=== PATIENT | male | born 1990 | race Caucasian/White ===

== ENCOUNTER → 2022-08-05 11:13 | Outpatient (CLI) | payer OTHER, SELFPAY ==
[2022-08-05 11:46] LABS: Basophils % 0.3 % (0.1-2.0); Eosinophils # 0.3 K/mm3 (0.0-0.4); Eosinophils % 3.6 % (0.1-12.0); Hematocrit 44.9 % (42.0-52.0); Hemoglobin 14.4 g/dL (14.1-18.0); Lymphocytes # 2.6 K/mm3 (0.7-4.5); Mean Corpuscular HGB Conc 32.1 g/dL (31.8-35.4); Mean Corpuscular Hemoglobin 28.5 pg (27.0-31.2); Mean Corpuscular Volume 88.8 fl (80-94); Mean Platelet Volume 7.6 fl (7.4-10.4); Monocytes # 0.4 K/mm3 (0.1-1.0); Monocytes % 4.9 % (1.7-9.3); Neutrophils # 3.9 K/mm3 (1.8-7.8); Neutrophils % 55.3 % (37.0-80.0); Platelet Count 324 K/mm3 (142-424); Red Blood Count 5.06 M/mm3 (4.60-6.20); Red Cell Distribution Width 13.9 % (11.5-17.5); White Blood Count 7.1 K/mm3 (4.8-10.8)
[2022-08-05 12:28] LABS: 25-OH Vitamin D, Total 28.5 ng/mL (30-100)
[2022-08-05 15:47] LABS: Alanine Aminotransferase 19 U/L (12-78); Albumin Level 4.2 g/dl (3.5-5.0); Alkaline Phosphatase 57 U/L (38-126); Anion Gap 14.5 mEq/L (5-15); Aspartate Amino Transferase 27 U/L (17-59); Bilirubin,Total 0.3 mg/dl (0.2-1.3); Blood Urea Nitrogen 7 mg/dl (9-20); Calcium 8.5 mg/dl (8.4-10.2); Carbon Dioxide 25 mmol/L (22.0-30.0); Chloride 107 mmol/L (98-107); Chol/HDL Ratio 1.8 (1-3.5); Cholesterol 88 mg/dl (140-200); Estimated Glomerular Filt Rate 133 ml/min (>60); GFR (African American) 161 ML/MIN (>60); Globulin 2.1 g/dL (1.3-3.2); Glucose 84 mg/dl (74-100); HDL Cholesterol 49 mg/dl (40-60); Potassium 4.5 mmoL/L (3.5-5.1); Sodium 142 mmol/L (136-145); Total Protein,Serum 6.3 g/dl (6.3-8.2); Triglycerides 44 mg/dl (30-150); VLDL Cholesterol 9 mg/dL (0-40)
[2022-08-05 16:10] LABS: Direct LDL Cholesterol < 30.00 mg/dL (100-129)
[2022-08-05 16:38] LABS: Vitamin B12 < 159 pg/mL (239-931)
[2022-08-09 21:57] LABS: Folate 3.63 ng/mL
== END ==
PROVIDERS: PCP Nurse Practitioner Family; Visit Provider Nurse Practitioner Family
DX: Z00.00 Encounter for general adult medical examination without abnormal findings (principal); G47.10 Hypersomnia, unspecified
CPT/HCPCS: 36415; 80053; 80061; 82306; 82607; 82746; 84443; 85025

== ENCOUNTER 2023-09-29 14:56 | Outpatient (CLI) | payer BC, SELFPAY ==
[2023-09-29 15:45] LABS: Basophils % 0.4 % (0.1-2.0); Eosinophils # 0.2 K/mm3 (0.0-0.4); Eosinophils % 2.2 % (0.1-12.0); Hemoglobin 13.5 g/dL (14.1-18.0); Mean Corpuscular HGB Conc 36.5 g/dL (31.8-35.4); Mean Corpuscular Hemoglobin 34.1 pg (27.0-31.2); Mean Corpuscular Volume 93.4 fl (80-94); Monocytes # 0.4 K/mm3 (0.1-1.0); Monocytes % 4.2 % (1.7-9.3); Neutrophils # 4.8 K/mm3 (1.8-7.8); Neutrophils % 57.2 % (37.0-80.0); Platelet Count 300 K/mm3 (142-424); Red Blood Count 3.96 M/mm3 (4.60-6.20); Red Cell Distribution Width 14.2 % (11.5-17.5); White Blood Count 8.3 K/mm3 (4.8-10.8)
[2023-09-29 15:56] LABS: Albumin Level 4.4 g/dl (3.5-5.0); Chloride 106 mmol/L (98-107); Sodium 138 mmol/L (136-145)
[2023-09-29 15:59] LABS: Alanine Aminotransferase 16 U/L (12-78); Alkaline Phosphatase 59 U/L (38-126); Aspartate Amino Transferase 26 U/L (17-59); Bilirubin,Total 0.7 mg/dl (0.2-1.3); Blood Urea Nitrogen 6 mg/dl (9-20); Calcium 8.8 mg/dl (8.4-10.2); Carbon Dioxide 28 mmol/L (22.0-30.0); Estimated Glomerular Filt Rate 114 ml/min (>60); GFR (African American) 137 ML/MIN (>60); Globulin 2.2 g/dL (1.3-3.2); Glucose 88 mg/dl (74-100); Total Protein,Serum 6.6 g/dl (6.3-8.2)
[2023-09-29 17:11] LABS: Vitamin B12 687 pg/mL (239-931)
[2023-09-29 17:22] LABS: Thyroid Stimulating Hormone 0.47 uIU/mL (0.465-4.68)
[2023-09-30 15:27] LABS: Iron 112 ug/dL (49-181)
[2023-09-30 15:36] LABS: Total Iron Binding Capacity 368 ug/dL (261-462)
== END 2023-09-29 23:59 | disposition home or self-care (01) ==
LOC: LAB 15:01
PROVIDERS: PCP Nurse Practitioner Family; Visit Provider Nurse Practitioner Family
DX: F31.9 Bipolar disorder, unspecified (principal); E53.8 Deficiency of other specified B group vitamins
CPT/HCPCS: 36415; 80050; 80053; 82607; 82728; 83540; 83550; 84443; 85025

== ENCOUNTER 2023-12-19 14:37 | Observation (INO) | payer MEDICAID, SELFPAY ==
[2023-12-19] VITALS (7 sets, daily range): BP systolic 112–151; BP diastolic 67–94; PULSE 46–61; RESP 17–20; TEMP 36.7–36.9; O2SAT 99–100; BMI 26.6
--- NOTE | 2023-12-19 14:50 | CT_ITS ---
PROCEDURE INFORMATION: Exam: CTA Head With Contrast, Arteriography Exam date and time: 12/19/2023 3:42 PM Age: 33 years old Clinical indication: Injury or trauma; Additional info: Trauma, critical injury suspected TECHNIQUE: Imaging protocol: Computed tomographic angiography of the head with contrast. Exam focused on the arteries. 3D rendering (Not supervised by radiologist): MIP and/or 3D reconstructed images were created by the technologist. Radiation optimization: All CT scans at this facility use at least one of these dose optimization techniques: automated exposure control; mA and/or kV adjustment per patient size (includes targeted exams where dose is matched to clinical indication); or iterative reconstruction. Contrast material: ISOVUE 370; Contrast volume: 80 ml; Contrast route: INTRAVENOUS (IV); COMPARISON: 1. CT HEAD/BRAIN WO CON 12/19/2023 3:[address] CERVICAL SPINE WO CON 12/19/2023 3:34 PM FINDINGS: ANTERIOR CIRCULATION: Right internal carotid artery: The right ICA demonstrates trace atherosclerosis. Right middle cerebral artery: No occlusion or significant stenosis. No aneurysm. Right anterior cerebral artery: No occlusion or significant stenosis. No aneurysm. Left internal carotid artery: Intracranial segment is patent with no significant stenosis. No aneurysm. Left middle cerebral artery: No occlusion or significant stenosis. No aneurysm. Left anterior cerebral artery: No occlusion or significant stenosis. No aneurysm. POSTERIOR CIRCULATION: Right vertebral artery: The right vertebral artery is developmentally hypoplastic, patent. Left vertebral artery: The left vertebral artery is dominant, patent. Basilar artery: No occlusion or significant stenosis. No aneurysm. Right posterior cerebral artery: No occlusion or significant stenosis. No aneurysm. Left posterior cerebral artery: No occlusion or significant stenosis. No aneurysm. Brain: No definite mass, mass effect, or midline shift. Cerebral ventricles: No ventriculomegaly. Bones/joints: Unremarkable. No acute fracture. Soft tissues: Unremarkable. Other findings: A left pneumothorax is again demonstrated. IMPRESSION: 1. No proximal intracranial arterial occlusion. 2. Trace intracranial right ICA calcified atherosclerosis, atypical for age.
--- NOTE | 2023-12-19 14:50 | CT_ITS ---
PROCEDURE INFORMATION: Exam: CT Lumbar Spine Without Contrast Exam date and time: 12/19/2023 3:39 PM Age: 33 years old Clinical indication: Injury or trauma; Additional info: Trauma, critical injury suspected TECHNIQUE: Imaging protocol: Computed tomography of the lumbar spine without contrast. Radiation optimization: All CT scans at this facility use at least one of these dose optimization techniques: automated exposure control; mA and/or kV adjustment per patient size (includes targeted exams where dose is matched to clinical indication); or iterative reconstruction. COMPARISON: CT THORACIC SPINE WO CON 12/19/2023 3:36 PM FINDINGS: Bones/joints: There are 5 [id number] vertebral bodies in the lumbar spine. Variant transitional lumbosacral anatomy. No evidence of acute fracture or malalignment. Soft tissues: Unremarkable. IMPRESSION: 1. No evidence of acute osseous abnormality in the lumbar spine. 2. Variant transitional lumbosacral anatomy. 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
--- NOTE | 2023-12-19 14:50 | CT_ITS ---
PROCEDURE INFORMATION: Exam: CT Head Without Contrast Exam date and time: 12/19/2023 3:32 PM Age: 33 years old Clinical indication: Injury or trauma; Additional info: Trauma, critical injury suspected TECHNIQUE: Imaging protocol: Computed tomography of the head without contrast. Radiation optimization: All CT scans at this facility use at least one of these dose optimization techniques: automated exposure control; mA and/or kV adjustment per patient size (includes targeted exams where dose is matched to clinical indication); or iterative reconstruction. COMPARISON: No relevant prior studies available. FINDINGS: Brain: No hemorrhage. Unremarkable white matter for the patient's age. No mass effect. No evolving territorial infarct. Hypodensity in the left lentiform nucleus, likely a perivascular space. Cerebral ventricles: No ventriculomegaly. Pituitary gland and sella: There is an empty sella turcica. Paranasal sinuses: Trace sphenoid sinus mucosal thickening. No sinus fluid levels. Mastoid air cells: Visualized mastoid air cells are well aerated. Bones: No acute calvarial fracture seen. Soft tissues: Unremarkable. IMPRESSION: No acute intracranial abnormality seen.
--- NOTE | 2023-12-19 14:50 | XR_ITS ---
PROCEDURE INFORMATION: Exam: XR Pelvis Exam date and time: 12/19/2023 2:42 PM Age: 33 years old Clinical indication: Injury or trauma TECHNIQUE: Imaging protocol: Radiologic exam of the pelvis. Views: 1 or 2 view. COMPARISON: CR XR PELVIS 1-2V 12/19/2023 2:42 PM FINDINGS: Bones/joints: No evidence of acute fracture or malalignment. Pubic symphysis and bilateral sacroiliac joints are congruent. Soft tissues: Unremarkable. IMPRESSION: No evidence of acute osseous abnormality in the pelvis.
--- NOTE | 2023-12-19 14:50 | CT_ITS ---
PROCEDURE INFORMATION: Exam: CTA Neck With Contrast Exam date and time: 12/19/2023 3:42 PM Age: 33 years old Clinical indication: Injury or trauma; Additional info: Trauma, critical injury suspected TECHNIQUE: Imaging protocol: Computed tomographic angiography of the neck with contrast. Exam focused on the cervical segments of the vasculature. 3D rendering (Not supervised by radiologist): MIP and/or 3D reconstructed images were created by the technologist. Radiation optimization: All CT scans at this facility use at least one of these dose optimization techniques: automated exposure control; mA and/or kV adjustment per patient size (includes targeted exams where dose is matched to clinical indication); or iterative reconstruction. Contrast material: ISOVUE 370; Contrast volume: 80 ml; Contrast route: INTRAVENOUS (IV); COMPARISON: CT CERVICAL SPINE WO CON 12/19/2023 3:34 PM FINDINGS: Right common carotid artery: No stenosis. No dissection or occlusion. Right internal carotid artery: No stenosis of the extracranial segment. No dissection or occlusion. Right external carotid artery: No occlusion or stenosis of the origin. Left common carotid artery: No stenosis. No dissection or occlusion. Left internal carotid artery: No stenosis of the extracranial segment. No dissection or occlusion. Left external carotid artery: No occlusion or stenosis of the origin. Right vertebral artery: No stenosis. No dissection or occlusion. Left vertebral artery: No stenosis. No dissection or occlusion. Soft tissues: Normal. No significant soft tissue swelling. Bones/joints: No acute fracture. Pleural spaces: A left pneumothorax is again demonstrated. IMPRESSION: No evidence of arterial injury in the neck. REFERENCES: NASCET CRITERIA. The degree of stenosis in the cervical segment of the internal carotid artery is based on NASCET criteria. Normal is no stenosis. Mild is less than 50% stenosis. Moderate is 50-69% stenosis. Severe is 70% to 99% stenosis. Total occlusion is no detectable patent lumen.
--- NOTE | 2023-12-19 14:50 | CT_ITS ---
PROCEDURE INFORMATION: Exam: CTA Chest With Contrast CTA Abdomen and Pelvis With Contrast Exam date and time: 12/19/2023 3:47 PM Age: 33 years old Clinical indication: Injury or trauma; Additional info: Trauma, critical injury suspected TECHNIQUE: Imaging protocol: Computed tomographic angiography of the chest with contrast. Exam focused on the arteries. Computed tomographic angiography of the abdomen and pelvis with contrast. Exam focused on the arteries. 3D rendering (Not supervised by radiologist): MIP and/or 3D reconstructed images were created by the technologist. Radiation optimization: All CT scans at this facility use at least one of these dose optimization techniques: automated exposure control; mA and/or kV adjustment per patient size (includes targeted exams where dose is matched to clinical indication); or iterative reconstruction. Contrast material: ISOVUE 370; Contrast volume: 80 ml; Contrast route: INTRAVENOUS (IV); COMPARISON: CR XR PELVIS 1-2V 12/19/2023 2:42 PM FINDINGS: Limitations: Photon starvation artifact related to patient's arm positioning severely degrades images and limits sensitivity of exam. VASCULATURE: Pulmonary arteries: No evidence of pulmonary emboli. Aorta: No aortic dissection or intramural hematoma. Celiac trunk and mesenteric arteries: No occlusion or significant stenosis. Renal arteries: No occlusion or significant stenosis. Right iliac arteries: No occlusion or significant stenosis. Left iliac arteries: No occlusion or significant stenosis. CHEST: Lungs: Minimal dependent subsegmental atelectasis in the left lung. No evidence of pulmonary contusion. No pulmonary edema. Calcified pulmonary granuloma in the right lower lobe consistent with chronic sequelae of prior granulomatous disease. Pleural spaces: Small left pneumothorax (10-15% total volume). No right pneumothorax. No pleural effusion. Heart: No cardiomegaly. No pericardial effusion. ABDOMEN AND PELVIS: Liver: Unremarkable. Gallbladder and biliary ducts: Unremarkable. Pancreas: Unremarkable. Spleen: Unremarkable. Adrenal glands: Unremarkable. Kidneys and ureters: Unremarkable. Stomach and bowel: Unremarkable. Appendix: No evidence of appendicitis. Intraperitoneal space: No free fluid. No pneumoperitoneum. Urinary bladder: Unremarkable. Reproductive: Unremarkable. Lymph nodes: Unremarkable. Bones/joints: No evidence of acute osseous abnormality. Specifically, there is no evidence of acute rib fracture. Soft tissues: Unremarkable. IMPRESSION: Small left pneumothorax (10-15% total volume). No other acute findings in the chest, abdomen or pelvis. THIS REPORT CONTAINS FINDINGS THAT MAY BE CRITICAL TO PATIENT CARE. The findings were verbally communicated by Dr. Vanessa Paige to Dr. Hoover via telephone conference at 4:05 PM EST on 12/19/2023. The findings were acknowledged and understood.
--- NOTE | 2023-12-19 14:50 | XR_ITS ---
PROCEDURE INFORMATION: Exam: XR Chest Exam date and time: 12/19/2023 2:42 PM Age: 33 years old Clinical indication: Injury or trauma; Blunt trauma (contusions or hematomas) TECHNIQUE: Imaging protocol: Radiologic exam of the chest. Views: 1 view. COMPARISON: CR XR CHEST PORTABLE 12/19/2023 2:42 PM FINDINGS: Lungs: No evidence of airspace infiltrate. No pulmonary edema. Pleural spaces: Trace left-sided pneumothorax, better demonstrated on subsequent thoracic spine CT. Heart/Mediastinum: Cardiomediastinal silouhette is within normal limits. Bones/joints: Questionable fracture in the anterior left 6th rib. IMPRESSION: 1. Trace left-sided pneumothorax, better demonstrated on subsequent thoracic spine CT. 2. Questionable fracture in the anterior left 6th rib. Please correlate with point tenderness. THIS REPORT CONTAINS FINDINGS THAT MAY BE CRITICAL TO PATIENT CARE. The findings were verbally communicated by Dr. Vanessa Paige to Dr. Hoover via telephone conference at 4:05 PM EST on 12/19/2023. The findings were acknowledged and understood.
--- NOTE | 2023-12-19 14:50 | CT_ITS ---
PROCEDURE INFORMATION: Exam: CT Cervical Spine Without Contrast Exam date and time: 12/19/2023 3:34 PM Age: 33 years old Clinical indication: Injury or trauma; Additional info: Trauma, critical injury suspected TECHNIQUE: Imaging protocol: Computed tomography of the cervical spine without contrast. Radiation optimization: All CT scans at this facility use at least one of these dose optimization techniques: automated exposure control; mA and/or kV adjustment per patient size (includes targeted exams where dose is matched to clinical indication); or iterative reconstruction. COMPARISON: CT HEAD/BRAIN WO CON 12/19/2023 3:32 PM FINDINGS: Bones: Anatomic alignment. No acute fracture seen. 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 No advanced degenerative changes or high-grade stenoses identified. Lungs: No significant apical lung opacities. Pleural spaces: There is a small left apical pneumothorax. Soft tissues: Unremarkable. IMPRESSION: 1. No cervical spine fracture seen. 2. A small left apical pneumothorax.
--- NOTE | 2023-12-19 14:50 | CT_ITS ---
PROCEDURE INFORMATION: Exam: CT Thoracic Spine Without Contrast Exam date and time: 12/19/2023 3:36 PM Age: 33 years old Clinical indication: Injury or trauma; Additional info: Trauma, critical injury suspected TECHNIQUE: Imaging protocol: Computed tomography of the thoracic spine without contrast. Radiation optimization: All CT scans at this facility use at least one of these dose optimization techniques: automated exposure control; mA and/or kV adjustment per patient size (includes targeted exams where dose is matched to clinical indication); or iterative reconstruction. COMPARISON: CT CERVICAL SPINE WO CON 12/19/2023 3:34 PM FINDINGS: Limitations: T1-T3 vertebrae are not included in the images provided. Bones/joints: No evidence of acute fracture or malalignment. Soft tissues: Unremarkable. Pleural spaces: Small left-sided pneumothorax partially visualized. IMPRESSION: 1. No evidence of acute osseous abnormality in the thoracic spine, noting that the T1-T3 vertebrae are not included in the images provided. 2. Small left-sided pneumothorax partially visualized.
[2023-12-19] MEDS: MORPHINE 4MG/ML SYRINGE 4 MG IV ×2 (15:01→17:15)
[2023-12-19] MEDS: 0.9 % SODIUM CHLORIDE 1000ML 1,000 ML 999 ML IV (15:01)
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
[2023-12-19 15:44] LABS: Albumin Level 4.8 g/dl (3.5-5.0); Chloride 110 mmol/L (98-107)
[2023-12-19 15:45] LABS: Potassium 3.7 mmoL/L (3.5-5.1); Sodium 144 mmol/L (136-145)
[2023-12-19 15:47] LABS: Alanine Aminotransferase 28 U/L (12-78); Alkaline Phosphatase 65 U/L (38-126); Anion Gap 17.7 mEq/L (5-15); Aspartate Amino Transferase 32 U/L (17-59); Bilirubin,Total 0.8 mg/dl (0.2-1.3); Blood Urea Nitrogen 9 mg/dl (9-20); Carbon Dioxide 20 mmol/L (22.0-30.0); Creatinine Clearance Estimated 183 mL/min (50-200); Estimated Glomerular Filt Rate 113 ml/min (>60); GFR (African American) 136 ML/MIN (>60); INR 0.97 (0.9-1.1); Prothrombin Time 10.9 seconds (10.1-12.5)
[2023-12-19 15:48] LABS: Albumin/Globulin Ratio 1.9 (1.1-1.8); Calcium 9.2 mg/dl (8.4-10.2); Globulin 2.5 g/dL (1.3-3.2); Glucose 126 mg/dl (74-100); Total Protein,Serum 7.3 g/dl (6.3-8.2)
[2023-12-19] MEDS: IOPAMIDOL-370 (76%);100ML BOTTLE 160 ML IV (15:48)
[2023-12-19] MEDS: 0.9 % SODIUM CHLORIDE 50 ML VIAL IV (15:48)
[2023-12-19] MEDS: SODIUM CHLORIDE 0.9% 10ML SYR (RAD ONLY) 10 ML IV (15:48)
[2023-12-19 15:52] LABS: Activated Partial Thrombo Time 24.5 seconds (22.8-30.6)
[2023-12-19 16:00] LABS: Troponin I < 0.01 ng/ml (0.00-0.034)
--- NOTE | 2023-12-19 16:11 | PC.NURSE ---
DR BEARD SPEAKING WITH AMAIRANI
[2023-12-19 16:17] LABS: Basophils % 0.3 % (0.1-2.0); Eosinophils # 0.1 K/mm3 (0.0-0.4); Eosinophils % 0.9 % (0.1-12.0); Hemoglobin 14.2 g/dL (14.1-18.0); Lymphocytes # 1.4 K/mm3 (0.7-4.5); Lymphocytes % 9.1 % (10-50); Mean Corpuscular HGB Conc 33.1 g/dL (31.8-35.4); Mean Corpuscular Hemoglobin 28.7 pg (27.0-31.2); Mean Corpuscular Volume 86.7 fl (80-94); Mean Platelet Volume 7.1 fl (7.4-10.4); Monocytes # 0.7 K/mm3 (0.1-1.0); Monocytes % 4.5 % (1.7-9.3); Neutrophils % 85.3 % (37.0-80.0); Platelet Count 284 K/mm3 (142-424); Red Blood Count 4.95 M/mm3 (4.60-6.20); Red Cell Distribution Width 14.1 % (11.5-17.5); White Blood Count 15.2 K/mm3 (4.8-10.8)
[2023-12-19 16:23] LABS: MANUAL DIFFERENTIAL MANUAL DIFFERENTIAL (MANUAL DIFF)
[2023-12-19 16:55] LABS: Eosinophils % 1 % (0-3); Lymphocytes % 15 % (10-50); Monocytes % 6 % (2-9); Neutrophils % 78 % (42-76); Total Cells Counted 100
[2023-12-19 16:57] LABS: Hypochromasia 2+; Platelet Estimate Normal
--- NOTE | 2023-12-19 17:07 | PC.NURSE ---
Called Dr Lawson per Dr Paul to speak with him about this pt.
--- NOTE | 2023-12-19 17:08 | PC.NURSE ---
Dr Lawson called back and is speaking with Dr Hoover now
--- NOTE | 2023-12-19 17:29 | PC.NURSE ---
REPORT GIVEN TO ORLANDO ACOSTA
--- NOTE | 2023-12-19 17:44 | PC.NURSE ---
arrived by w/c from ED
[2023-12-19 19:21] LABS: Troponin I < 0.01 ng/ml (0.00-0.034)
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
[2023-12-19] MEDS: ARIPIPRAZOLE 5 MG 5 EACH PO (20:30)
[2023-12-19] MEDS: KETOROLAC 30MG/ML VIAL 30 MG IV (20:35)
[2023-12-19] MEDS: NICOTINE 21MG/24HR PATCH 21 MG TD (20:35)
[2023-12-19 22:00] LABS: Troponin I < 0.01 ng/ml (0.00-0.034)
[2023-12-20] VITALS: BP 107/61; PULSE 56; RESP 16; TEMP 37; O2SAT 100
[2023-12-20 04:00] VITALS: BP 106/52; PULSE 55; RESP 16; TEMP 37.1; O2SAT 100; BMI 26.6
--- NOTE | 2023-12-20 06:10 | XR_ITS ---
PROCEDURE INFORMATION: Exam: XR Chest Exam date and time: 12/20/2023 6:52 AM Age: 33 years old Clinical indication: Pneumothorax seen on CT chest from December 18 TECHNIQUE: Imaging protocol: Radiologic exam of the chest. Views: 1 view. COMPARISON: CT ANGIO CHEST 12/19/2023 3:47 PM FINDINGS: Lungs: Consolidation in the left lower lobe consistent with atelectasis or pneumonia.. Pleural spaces: Lucency along the left heart border consistent with pneumothorax.. This was evident on the CT from December 18. It is probably unchanged. Heart/Mediastinum: Unremarkable. No cardiomegaly. Bones/joints: Unremarkable. IMPRESSION: 1. Lucency along the left heart border consistent with pneumothorax.. This was evident on the CT from December 18. It is probably unchanged. 2. Consolidation in the left lower lobe consistent with atelectasis or pneumonia..
[2023-12-20 07:01] LABS: Basophils # 0.1 K/mm3 (0-0.2); Basophils % 0.5 % (0.1-2.0); Eosinophils # 0.2 K/mm3 (0.0-0.4); Eosinophils % 1.6 % (0.1-12.0); Hematocrit 42.1 % (42.0-52.0); Lymphocytes # 2.6 K/mm3 (0.7-4.5); Mean Corpuscular HGB Conc 33.2 g/dL (31.8-35.4); Mean Corpuscular Hemoglobin 28.7 pg (27.0-31.2); Mean Corpuscular Volume 86.2 fl (80-94); Mean Platelet Volume 7.1 fl (7.4-10.4); Monocytes # 0.8 K/mm3 (0.1-1.0); Monocytes % 7.5 % (1.7-9.3); Neutrophils # 7.5 K/mm3 (1.8-7.8); Neutrophils % 67.4 % (37.0-80.0); Platelet Count 275 K/mm3 (142-424); Red Blood Count 4.88 M/mm3 (4.60-6.20); Red Cell Distribution Width 14.3 % (11.5-17.5); White Blood Count 11.1 K/mm3 (4.8-10.8)
[2023-12-20 07:20] LABS: Alanine Aminotransferase 21 U/L (12-78); Albumin/Globulin Ratio 1.9 (1.1-1.8); Alkaline Phosphatase 48 U/L (38-126); Anion Gap 9.3 mEq/L (5-15); Aspartate Amino Transferase 33 U/L (17-59); Bilirubin,Total 0.7 mg/dl (0.2-1.3); Blood Urea Nitrogen 9 mg/dl (9-20); Calcium 8.6 mg/dl (8.4-10.2); Carbon Dioxide 29 mmol/L (22.0-30.0); Chloride 107 mmol/L (98-107); Creatinine Clearance Estimated 184 mL/min (50-200); Estimated Glomerular Filt Rate 113 ml/min (>60); GFR (African American) 136 ML/MIN (>60); Globulin 2.1 g/dL (1.3-3.2); Glucose 88 mg/dl (74-100); Potassium 4.3 mmoL/L (3.5-5.1); Sodium 141 mmol/L (136-145); Total Protein,Serum 6.1 g/dl (6.3-8.2)
[2023-12-20 07:33] VITALS: BP 94/54; PULSE 60; RESP 18; TEMP 36.7; O2SAT 96
[2023-12-20] MEDS: ENOXAPARIN 40MG/0.4ML SYRINGE 40 MG SUBCUT (08:10)
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
[2023-12-20 12:00] VITALS: BP 110/60; PULSE 68; RESP 15; TEMP 36.8; O2SAT 97
--- NOTE | 2023-12-20 12:15 | XR_ITS ---
PROCEDURE INFORMATION: Exam: XR Chest Exam date and time: 12/20/2023 1:30 PM Age: 33 years old Clinical indication: Other: Eval pneumo; Additional info: Eval pneumo resolution TECHNIQUE: Imaging protocol: Radiologic exam of the chest. Views: 2 views. COMPARISON: CR XR CHEST PORTABLE 12/20/2023 6:52 AM FINDINGS: Lungs: Unremarkable. No consolidation. Pleural spaces: Left pneumothorax is re-identified. There is approximate 2.7 cm of pleural separation, better seen in the lateral view. Heart/Mediastinum: Unremarkable. No cardiomegaly. Bones/joints: Unremarkable. IMPRESSION: Left pneumothorax is re-identified. There is approximate 2.7 cm of pleural separation, better seen in the lateral view.
--- NOTE | 2023-12-20 13:26 | PC.NURSE ---
pt off floor to radiology.
--- NOTE | 2023-12-20 13:35 | PC.NURSE ---
pt back to room from radiology.
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
--- NOTE | 2023-12-21 14:34 | CARE MANAGER ---
Contacted patient related to hospital discharge. He states he is sore, but doing well. He is aware of follow up appointments and has medication. ORLANDO Boykin
== END 2023-12-20 15:30 | disposition home or self-care (01) ==
LOC: ER 17:15 → 2ND 17:17
PROVIDERS: Admitting Provider Student in an Organized Health Care Education/Training Program; Emergency Provider Emergency Medicine; PCP Nurse Practitioner Family; Visit Provider Student in an Organized Health Care Education/Training Program
DX: J93.9 Pneumothorax, unspecified (principal); F32.A Depression, unspecified; F17.200 Nicotine dependence, unspecified, uncomplicated; V29.99XA Rider (driver) (passenger) of other motorcycle injured in unspecified traffic accident, initial encounter
CPT/HCPCS: 36415; 70450; 70496; 70498; 71045; 71046; 71275; 72125; 72128; 72131; 72170; 74174; 80053; 84484; 85007; 85025; 85027; 85610; 85730; 97162; 97165; 99291; G0378; J1650; J1885; J2270; J7030; Q9967